=== PATIENT | male | born 1945 | race Caucasian/White ===

== ENCOUNTER 2016-05-02 12:39 | Outpatient (CLI) ==
[2016-05-02 13:07] LABS: ABG BASE EXCESS 3 (-2.0-2.0); ABG HCO3 28 (22.0-26.0); ABG PH 7.43 (7.35-7.45); ABG TCO2 29 (22.0-28.0)
== END 2016-05-02 12:40 | disposition home or self-care (01) ==
LOC: CAR 12:39
PROVIDERS: ATTEND Internal Medicine
DX: R06.02 Shortness of breath (principal)
CPT/HCPCS: 82803

== ENCOUNTER 2016-09-20 13:50 | Outpatient (CLI) ==
--- NOTE | 2016-09-20 14:40 | US ---
EXAM: Ultrasound scrotum and contents. HISTORY: Right scrotal swelling, palpable area. COMPARISON: None available. TECHNIQUE: Sethi-scale and color Doppler images. FINDINGS: The right testicle measures 4.7 x 3.2 x 3.9 cm. There is homogeneous echogenicity with vascular flow . Within the right epididymis are too discrete hypoechoic avascular structures, larger measuring 1. 6 x 1.3 x 1.7 cm which reportedly corresponds to the area of palpable concern. The smaller lesion m easures 0.4 x 0.3 x 0.3 cm and appears peripherally calcified. There is a moderate sized right hydr ocele with some internal echoes. The left testicle measures 4.9 x 2.5 x 2.9 cm. There is homogeneous echogenicity with vascular flow . Small tunica albuginea cyst measures up to 0.5 cm diameter. Left epididymis contains a few cysts measuring up to 0.7 cm maximum diameter. Small left hydrocele is present with internal echoes. IMPRESSION: 1. Right epididymal cyst versus spermatocele, corresponding to the area of palpable concern. 2. Small left tunica albuginea cyst. Small left epididymal cysts. 3. No sonographic abnormality of the testes. 4. Bilateral complicated hydroceles, larger on the right.
== END 2016-09-20 13:51 | disposition home or self-care (01) ==
LOC: RAD 13:50
PROVIDERS: ATTEND Internal Medicine
DX: N50.89 Other specified disorders of the male genital organs (principal)

== ENCOUNTER 2017-11-20 15:48 | Outpatient (CLI) | payer OTHER ==
--- NOTE | 2017-11-20 16:24 | CT ---
EXAM: CT of the head without contrast History: Head trauma. Technique: Multiplanar CT images through the head were obtained without the administration of IV con trast Findings: The visualized paranasal sinuses and mastoid air cells are clear in general. No acute calv arial abnormalities. Small to moderate high right posterior scalp hematoma. Intracranially the ventricular and cisternal spaces are normal in size, shape and configuration for a patient of this age. No dominant mass or midline shift. No hydrocephalous. No acute intracranial hemorrhage or abnormal extraaxial fluid collections. Impression: 1. No acute intracranial process. 2. Right posterior scalp hematoma
== END 2017-11-20 15:49 | disposition home or self-care (01) ==
LOC: RAD 15:48
PROVIDERS: ATTEND Internal Medicine
DX: S00.93XA Contusion of unspecified part of head, initial encounter (principal)

== ENCOUNTER 2018-07-08 05:36 | Emergency (ER) ==
[2018-07-08 05:44] VITALS: BP 154/85; TEMP 96.8; BMI 36.6
--- NOTE | 2018-07-08 06:20 | ED.PDOC ---
General ED Provider: Dr. SALINA MARTINEZ Chief Complaint: Earache Stated Complaint: woke up with pain in r ear canal and slow bleed or spotting, Exam reveales hypertrophic cutaneous lining of the external canal,partially sclerotic that. apparently was subject to a mechanical challange and broke into spot-bleed.No foreign material,insect or else is found in the canal upon visual exam with a scope,TM can not be seen but further visual check is limited by pain.Gentle probing is negative.Hearing is muffled but present. Time Seen by Physician: 05:45 Mode of Arrival: Walk-In Information Source: Patient Exam Limitations: No limitations Primary Care Provider: BRYON LIMON Nursing and Triage Documentation Reviewed and Agree: Yes Does patient meet sepsis criteria?: No System Inflammatory Response Syndrome: Not Applicable Sepsis Protocol: For patient's 13 years and over: Temp is 96.8 and below OR 101 and greater Pulse >90 BPM Resp >20/minute Acutely Altered Mental Status Are patient's symptoms suggestive of a new infection, such as: -Pneumonia -Skin, Soft Tissue -Endocarditis -UTI -Bone, Joint Infection -Implantable Device -Acute Abdominal Infection -Wound Infection -Meningitis -Blood Stream Catheter Infection -Unknown EENT Complaint Exam - Ear Complaint/Exam Onset/Duration: at am mnoticed upon awakening Symptoms Are: Still present Timing: Intermittent Initial Severity: Mild Current Severity: None Aggravating: Reports: None Alleviating: Reports: None Associated Signs and Symptoms: Reports: Ear trauma, Bleeding Ear Surgical History: None Vesicles to External Pinna: No Vesicles to Tragus: No TMJ Tenderness: None Mastoid Tenderness: None Tragal Tenderness: None External Canal: Erythema, Swelling Material in Canal: Present: Cerumen impaction, Blood Tympanic Membrane: Erythema Differential Diagnoses: Cellulitis, Cerumen Impaction, Foreign Body, Otitis Externa, Perforated TM, Abrasion, Laceration, Contusion Review of Systems - Review Of Systems Constitutional: Reports: No symptoms Eyes: Reports: No symptoms Ears, Nose, Mouth, Throat: Reports: Ear pain, Ear discharge Respiratory: Reports: No symptoms Cardiac: Reports: No symptoms GI: Reports: No symptoms : Reports: No symptoms Musculoskeletal: Reports: No symptoms Skin: Reports: No symptoms Neurological: Reports: No symptoms Endocrine: Reports: No symptoms Hematologic/Lymphatic: Reports: No symptoms All Other Systems: Reviewed and Negative Past Medical History - Past Medical History Previously Healthy: Yes Endocrine: Reports: None Cardiovascular: Reports: None Respiratory: Reports: None Hematological: Reports: None Gastrointestinal: Reports: None Genitourinary: Reports: None Neuro/Psych: Reports: None Musculoskeletal: Reports: None Cancer: Reports: None - Surgical History General Surgical History: Reports: None - Family History Family History: Reports: None - Social History Smoking Status: Former smoker Hx Substance Use: No Alcohol Screening: Occasionally - Immunizations Tetanus Shot up to Date: (UNKNOWN) Physical Exam - Physical Exam Appearance: Well-appearing Ill-appearing: None Pain Distress: None Eyes: ISABEL ENT: TMs Occluded, Erythema Neck: Supple Respiratory: Airway patent Cardiovascular: RRR GI/: Soft Musculoskeletal: Normal strength Skin: Warm Neurological: Sensation intact, Alert, Oriented Psychiatric: Affect appropriate Critical Care Note - Critical Care Note Total Time (mins): 0 Course - Course Vital Signs: Temp Pulse Resp BP Pulse Ox 07/08/18 05:36 96.8 F L 61 18 154/85 H 95 Departure - Departure Time of Disposition: 06:34 Disposition: HOME SELF-CARE Discharge Problem: Hemorrhage from the ear, Otitis media, purulent, acute, with spontaneous rupture of TM Instructions: Barotrauma (ED) Condition: Good Pt referred to PMD for follow-up: Yes (refer to ENT today,poss TM rupture,Take ABX as Rx) IPMP verified?: No Additional Instructions: Augmentin 875/125 bid x 10 days.Tylenol q 4-6 houtrs OTC, Allergies/Adverse Reactions: Allergies codeine Adverse Reaction (Verified 07/08/18 05:45) "PASSED OUT" Home Medications: Ambulatory Orders Clonidine HCl 0.1 mg PO BID 07/08/18 Losartan Potassium 100 mg PO DAILY 07/08/18 Metformin HCl 1,000 mg PO BID 07/08/18 Metoprolol Tartrate 50 mg PO BID 07/08/18 Naproxen 375 mg PO BID 07/08/18 Ranitidine HCl 300 mg PO BID 07/08/18 Simvastatin 20 mg PO BEDTIME 07/08/18 Tamsulosin HCl [Flomax] 0.4 mg PO DAILY 07/08/18 Warfarin Sodium [Coumadin] 5 mg PO [id number] 07/08/18 Warfarin Sodium [Coumadin] 7.5 mg PO MOTH 07/08/18 Disposition Discussed With: Patient, Family
[2018-07-08] MEDS ORDERED: POLYSPORIN 0.9 GM PACKET TP STA (06:29)
== END 2018-07-08 06:44 | disposition home or self-care (01) ==
LOC: ED 05:36
DX: H66.019 Acute suppurative otitis media with spontaneous rupture of ear drum, unspecified ear (principal)
CPT/HCPCS: 99282

== ENCOUNTER 2018-07-23 13:19 | Outpatient (POV) | END 2018-07-23 17:00 | LOC: OUTPT 13:19 | PROVIDERS: ATTEND Otolaryngology | DX: H91.90 Unspecified hearing loss, unspecified ear (principal) ==

== ENCOUNTER 2018-08-06 12:42 | Outpatient (POV) | END 2018-08-06 17:00 | LOC: OUTPT 12:42 | PROVIDERS: ATTEND Otolaryngology | DX: H91.90 Unspecified hearing loss, unspecified ear (principal) | CPT/HCPCS: 92553 ==

== ENCOUNTER 2018-08-20 09:39 | Outpatient (POV) | END 2018-08-20 17:00 | LOC: OUTPT 09:39 | PROVIDERS: ATTEND Otolaryngology | DX: H91.90 Unspecified hearing loss, unspecified ear (principal) ==